=== PATIENT | male | born 1970 | race African-American/Black ===

== ENCOUNTER → 2024-04-30 | Outpatient (CLI) | payer MEDICAID ==
[2024-04-30 15:39] LABS: Urine Bacteria None Seen /hpf (None Seen)
[2024-04-30 15:45] LABS: Urine Blood Negative /uL (Negative); Urine Clarity Clear (Clear); Urine Color Colorless (Yellow); Urine Protein, UAD Negative (Negative); Urine Specific Gravity 1.007 (1.001-1.035); Urine Urobilinogen Normal (Negative); Urine WBC 11 /hpf (0 - 3); Urine pH 6.5 (5.0-9.0)
== END | disposition home or self-care (01) ==
LOC: LAB 15:31
PROVIDERS: ATTEND Nurse Practitioner
DX: N39.0 Urinary tract infection, site not specified (principal)
CPT/HCPCS: 81001; 87086

== ENCOUNTER 2025-02-03 11:38 | Outpatient (CLI) | payer MEDICAID ==
[2025-02-03 12:55] LABS: Anion Gap 10 (5-15); Carbon Dioxide 27 mmol/L (20-31); Chloride 101 mmol/L (98-107); Potassium 4.1 mmol/L (3.5-5.1); Sodium 138 mmol/L (136-145)
[2025-02-03 12:56] LABS: Calcium 9.4 mg/dL (8.7-10.4)
[2025-02-03 13:01] LABS: BUN/Creatinine Ratio 8.5 (10.0-20.0); Blood Urea Nitrogen 9 mg/dL (9-23); Glucose 89 mg/dL (74-106)
== END 2025-02-03 17:00 | disposition home or self-care (01) ==
LOC: LAB 11:38
PROVIDERS: ATTEND Urology
DX: N40.1 Benign prostatic hyperplasia with lower urinary tract symptoms (principal); R97.20 Elevated prostate specific antigen [PSA]
CPT/HCPCS: 36415; 80048; 84153; 84154